=== PATIENT | male | born 1960 | race Caucasian/White ===

== ENCOUNTER → 2018-11-08 08:08 | Outpatient (CLI) | payer OTHER, SELFPAY ==
--- NOTE | 2018-11-08 | DI.MRI.S_ITS ---
PROCEDURE: MR LUMBAR SPINE WO CON INDICATIONS: LUMBAR SPINE PAIN TECHNIQUE: Noncontrast sagittal T1 spin echo and T2 fast echo, sagittal STIR, axial T1 and T2 fast spin echo through the lumbar spine. In cases with scoliosis, additional coronal T2 fast spin echo may be performed. COMPARISON: None. FINDINGS: Image quality: Excellent. Alignment and Curvature: There is minimal retrolisthesis seen at the L5-S1 level. Bone Marrow: Marrow is of normal overall signal. No acute vertebral body compression fractures. Scattered foci are seen, which are hyperintense on T1-weighted and T2-weighted imaging, which are most consistent with benign vertebral body hemangiomas. A remote Schmorl's node is incidentally noted at the superior endplate of T12. Spinal Cord: Conus medullaris terminates at the L1 level. Visualized cord demonstrates normal signal and size. Paraspinous Soft Tissues: No paravertebral masses. T12-L1: Normal appearance. L1-L2: Normal appearance. L2-L3: Normal appearance. L3-L4: The disc height and disk signal are well-preserved. Mild generalized disc bulge is seen. There is mild to moderate left-sided and mild right-sided neural foraminal narrowing seen. The central canal is widely patent. L4-L5: The disc height is well-preserved. Loss of disc signal is seen at this level. There is a faintly seen annular fissure posteriorly, as on series 2 image 9. Moderate disc bulge is seen, which is eccentric to the right. Moderate bilateral neural foraminal narrowing is seen, which is more prominent on the right side than on the left. Mild central canal narrowing is seen. L5-S1: Moderate disc bulge is seen, which is eccentric to the right. There is a right renal disc protrusion seen. There is mild left-sided and moderate right-sided neural foraminal narrowing seen. No significant central canal narrowing is seen. IMPRESSION: Lower lumbar spine degenerative changes are seen. Dictated by: Patrick Hutchinson M.D. on 11/08/2018 at 8:14 Approved by: Patrick Hutchinson M.D. on 11/08/2018 at 8:18
== END ==
PROVIDERS: PCP Registered Nurse Diabetes Educator; Visit Provider Physical Medicine & Rehabilitation Pain Medicine
DX: M54.5 Low back pain (principal); M47.816 Spondylosis without myelopathy or radiculopathy, lumbar region
CPT/HCPCS: 72148

== ENCOUNTER → 2020-03-10 08:19 | Outpatient (CLI) | payer OTHER, SELFPAY ==
[2020-03-10 09:00] LABS: Creatinine Urine Random 181.4 mg/dL
[2020-03-10 09:04] LABS: Microalbumi Creatinin Ratio Ur 6.6 ug/mg CR (<30); Microalbumin Urine Random 1.2 mg/dL (0-1.6)
[2020-03-10 09:44] LABS: Hemoglobin A1C% w Est Avg Glu 6.3 % (4.0-6.0)
[2020-03-10 09:50] LABS: BUN Creatinine Ratio 18.1 (6-22); Blood Urea Nitrogen 19 mg/dL (9-20); Calcium 9.3 mg/dL (8.4-10.2); Carbon Dioxide 24 mmol/L (22-32); Chloride 104 mmol/L (98-107); Estimated Glomerular Filt Rate > 60.0 mL/min (>60); Glucose 93 mg/dL (80-110); HEMOLYSIS 19 (0-50); Potassium 4.4 mmol/L (3.4-5.1); Sodium 138 mmol/L (137-145)
[2020-03-10 10:18] LABS: Prostate Specific Antigen Scrn 3.08 ng/mL (0.1-4.0)
[2020-03-10 10:23] LABS: Vitamin D 25 Hydroxy (D3) 33.9 ng/mL (30.0-100.0)
[2020-03-10 10:37] LABS: TSH w/ Reflex to FT4 4.95 uIU/mL (0.47-4.68)
[2020-03-10 11:01] LABS: Free T4, Direct Thyroxine 0.75 ng/dL (0.78-2.19)
== END ==
PROVIDERS: PCP Student in an Organized Health Care Education/Training Program; Referring Provider Student in an Organized Health Care Education/Training Program; Visit Provider Student in an Organized Health Care Education/Training Program
DX: Z12.5 Encounter for screening for malignant neoplasm of prostate (principal); I10 Essential (primary) hypertension; R73.03 Prediabetes; E55.9 Vitamin D deficiency, unspecified; E03.9 Hypothyroidism, unspecified
CPT/HCPCS: 36415; 80048; 82043; 82306; 82570; 83036; 84439; 84443; G0103

== ENCOUNTER → 2020-04-30 09:41 | Outpatient (CLI) | payer OTHER, SELFPAY ==
[2020-05-01 18:41] LABS: COVID19 Sendout Not Detected (Not Detect)
== END ==
PROVIDERS: PCP Student in an Organized Health Care Education/Training Program; Visit Provider Physician Assistant
DX: Z11.59 Encounter for screening for other viral diseases (principal)
CPT/HCPCS: 87635

== ENCOUNTER 2020-05-03 06:44 | Day surgery (SDC) | payer OTHER, SELFPAY ==
[2020-05-03 07:15] VITALS: BMI 30.4
[2020-05-03] MEDS: LACTATED RINGERS 1,000 ML 200 ML IV (07:30)
[2020-05-03 08:39] VITALS: BP 144/88; PULSE 56; RESP 12; TEMP 36.1; O2SAT 98; BMI 30.4
--- NOTE | 2020-05-03 10:14 | PM.HP.1 ---
History of Present Illness History of Present Illness Date Patient Seen: 05/03/20 Time Patient Seen: 10:14 Chief complaint: SD Narrative: The patient is a gentleman here for screening colonoscopy. His mother of colon cancer. His last exam was 5 years ago and was normal. Patient History Family & Social History Social History: household members spouse Tobacco & Substance use: Smoking Status Never smoker alcohol intake current alcohol intake frequency a few times a month Substance Use Type does not use Meds Home Medications and Allergies Home Medications Medication Instructions Recorded Confirmed Type esomeprazole magnesium 20 mg 20 mg PO DAILY PRN 03/09/20 05/03/20 History tablet,delayed release fexofenadine 180 mg tablet 180 mg PO DAILY 03/09/20 05/03/20 History pimecrolimus 1 % topical cream 1 applictn TOP BID PRN 03/09/20 05/03/20 History sildenafil 100 mg tablet 100 mg PO DAILY PRN 03/09/20 05/03/20 History atenolol 25 mg tablet 25 mg PO DAILY #90 tab 03/11/20 05/03/20 Rx metformin 500 mg tablet,extended 500 mg PO QPM #90 tab 03/11/20 05/03/20 Rx release 24 hr simvastatin 40 mg tablet 40 mg PO BEDTIME #90 tab 03/11/20 05/03/20 Rx Allergies Allergy/AdvReac Type Severity Reaction Status Date / Time amoxicillin Allergy Mild rash Verified 05/03/20 07:07 montelukast [From [facility]] Allergy Mild rash Verified 05/03/20 07:07 Review of Systems Review of Systems Narrative: No breathing issues heart problems chest pain he does have hypertension. Took his beta-charbel. No black or bloody bowel movements. No seizures or blackouts. Exam Vital Signs (past 8 hours): - 05/03/20 08:39 Temperature 96.9 F L Pulse Rate 56 L Respiratory Rate 12 Blood Pressure 144/88 H Pulse Oximetry 98 Oxygen Delivery Method Room Air Narrative Exam Narrative: Pleasant cooperative patient no apparent distress. Lungs are clear to auscultation. No rales or rhonchi. Heart regular rate and rhythm no murmur gallop. Abdomen is soft nontender without mass. No obvious hernias. Patient is alert and oriented x3. Assessment & Plan Assessment & Plan narrative: The patient for a screening colonoscopy. I have discussed the procedure with them. Risks of bleeding, perforation which would necessitate major operation, failure to find remove all lesions, the potential tattoo were all discussed. All questions were answered. They wished to proceed.
--- NOTE | 2020-05-03 10:15 | PM.PREOP ---
Pre-operative Note COVID-19 COVID-19 status: Negative Result date/Date tested (Pos, Neg/Pending): 04/30/20 Interval Note History & Physical reviewed/Exam performed by Physician: Yes Changes to H&P: No ASA Class (for procedural sedation): II
[2020-05-03] MEDS: fentaNYL 250 MCG/5 ML INJ IV (10:40)
[2020-05-03] MEDS: MIDAZOLAM 5 MG/5 ML VIAL IV (10:41)
--- NOTE | 2020-05-03 10:41 | PM.OP.ENDO ---
Operative Date/Time/Diagnoses Date of procedure: 05/03/20 Time of procedure: 10:41 Pre-op diagnosis: Screening exam. High-risk patient due to mother having colon cancer. Last exam 5 years ago. Post-op diagnosis: same (Normal colonoscopy) Procedure & Clinicians Study performed: Colonoscopy Same procedure as scheduled: Yes Indications: Screening Surgeon: Landon Henning Procedure Notes SCOAP/Timeout: Perform Procedure in detail: The patient was placed in the left lateral decubitus position and underwent IV sedation directed by the surgeon consisting of fentanyl and Versed. Digital exam was remarkable for mildly enlarged prostate. There were no masses. The scope was inserted and advanced through the rectum into the sigmoid, descending, transverse, and ascending colon. No lesions were seen. The cecum was reached identified by the ileocecal valve and the appendiceal opening. The scope was gradually brought out. No Polyps were found. The scope ultimately was retroflexed in the rectum. The appearance was normal. The scope was removed and the patient tolerated the procedure well. Prep was very good. Scope withdrawal time: Over 7 minutes Sedation minutes: 19 Findings: other findings (Normal exam) Specimen(s): none sent Complications: none Post-procedure Recommendations: Colonscopy in 5 years (Due to family history of colon cancer) Follow up: as needed Disposition: PACU
[2020-05-03 10:50] VITALS: BP 145/90; PULSE 88; RESP 16; TEMP 36.6; O2SAT 97
[2020-05-03 10:53] VITALS: BP 139/94; PULSE 64; RESP 12; O2SAT 96
[2020-05-03 11:03] VITALS: BP 133/85; PULSE 58; RESP 16; TEMP 36.4; O2SAT 94
[2020-05-03 12:16] VITALS: BP 137/80; PULSE 52; RESP 16; TEMP 36; O2SAT 97
--- NOTE | 2020-05-03 14:14 | SUR.PHASEII ---
Pt was resting comfortably in stretcher. Attempted to call multiple times however cell phone was not receiving calls. Around noon, retreved from waiting room and brought back for education and pt's d/c.
== END 2020-05-03 12:35 | disposition home or self-care (01) ==
PROVIDERS: Specialist; PCP Student in an Organized Health Care Education/Training Program; Visit Provider Surgery
PROC: 0DJD8ZZ Inspection of Lower Intestinal Tract, Via Natural or Artificial Opening Endoscopic (ICD-10-PCS; CPT 45378; principal; 2020-05-03 07:45)
DX: Z12.11 Encounter for screening for malignant neoplasm of colon (principal); Z80.0 Family history of malignant neoplasm of digestive organs; I10 Essential (primary) hypertension
CPT/HCPCS: 45378; 99152; J2250; J3010

== ENCOUNTER → 2020-08-04 15:23 | Outpatient (CLI) | payer OTHER, SELFPAY ==
[2020-08-04 15:55] LABS: Add Manual Diff / Slide Review NO; Basophils Absolute Auto 0 /uL (0-100); Basophils Percent Auto 0.8 % (0-2); Eosinophils Absolute Auto 100 /uL (0-450); Eosinophils Percent Auto 2.4 % (2-4); Hematocrit 46.2 % (41-53); Hemoglobin 15.5 g/dL (13.5-17.5); Lymphocytes Absolute Auto 2000 /uL (1100-4500); Lymphocytes Percent Auto 34.8 % (25-40); Mean Corpuscular HGB Conc 33.5 % (30-36); Mean Corpuscular Hemoglobin 30.9 PG (26-34); Mean Corpuscular Volume 92.2 fL (80-100); Monocytes Absolute Auto 700 /uL (0-900); Monocytes Percent Auto 12.6 % (3-14); Neutrophils Absolute Auto 2900 /uL (1500-7000); Neutrophils Percent Auto 49.4 % (50-75); Platelet Count 211 X10^3/uL (150-400); Red Cell Distribution Width 13.6 % (11.6-14.8); White Blood Cell Count 5.8 X10^3/uL (4.5-11.0)
[2020-08-04 16:02] LABS: Hemoglobin A1C% w Est Avg Glu 6.3 % (4.0-6.0)
[2020-08-04 16:06] LABS: BUN Creatinine Ratio 24.7 (6-22); Blood Urea Nitrogen 21 mg/dL (9-20); Calcium 9.3 mg/dL (8.4-10.2); Carbon Dioxide 27 mmol/L (22-32); Chloride 104 mmol/L (98-107); Estimated Glomerular Filt Rate > 60.0 mL/min (>60); Glucose 97 mg/dL (80-110); HEMOLYSIS < 15 (0-50); Potassium 4.4 mmol/L (3.4-5.1); Sodium 139 mmol/L (137-145)
[2020-08-04 16:37] LABS: Prostate Specific Antigen Scrn 3.45 ng/mL (0.1-4.0)
[2020-08-04 16:38] LABS: TSH w/ Reflex to FT4 6.45 uIU/mL (0.47-4.68)
[2020-08-04 16:56] LABS: Vitamin B12 Reflex MMA if <400 449 pg/mL (239-931)
[2020-08-04 17:05] LABS: Free T4, Direct Thyroxine 0.73 ng/dL (0.78-2.19)
== END ==
PROVIDERS: PCP Student in an Organized Health Care Education/Training Program; Referring Provider Student in an Organized Health Care Education/Training Program; Visit Provider Student in an Organized Health Care Education/Training Program
DX: Z12.5 Encounter for screening for malignant neoplasm of prostate (principal); R73.03 Prediabetes; G62.9 Polyneuropathy, unspecified; E03.9 Hypothyroidism, unspecified
CPT/HCPCS: 36415; 80048; 82607; 83036; 84439; 84443; 85025; G0103

== ENCOUNTER → 2020-09-15 09:04 | Outpatient (CLI) | payer OTHER, SELFPAY ==
[2020-09-15 10:58] LABS: TSH w/ Reflex to FT4 0.02 uIU/mL (0.47-4.68)
[2020-09-15 11:46] LABS: Free T4, Direct Thyroxine 1.54 ng/dL (0.78-2.19)
== END ==
PROVIDERS: PCP Student in an Organized Health Care Education/Training Program; Referring Provider Student in an Organized Health Care Education/Training Program; Visit Provider Student in an Organized Health Care Education/Training Program
DX: E03.9 Hypothyroidism, unspecified (principal)
CPT/HCPCS: 36415; 84439; 84443

== ENCOUNTER → 2020-10-27 08:21 | Outpatient (CLI) | payer OTHER, SELFPAY ==
[2020-10-27 11:20] LABS: Free T4, Direct Thyroxine 1.27 ng/dL (0.78-2.19)
== END ==
PROVIDERS: PCP Student in an Organized Health Care Education/Training Program; Referring Provider Student in an Organized Health Care Education/Training Program; Visit Provider Student in an Organized Health Care Education/Training Program
DX: E03.9 Hypothyroidism, unspecified (principal)
CPT/HCPCS: 36415; 84439; 84443

== ENCOUNTER → 2020-12-21 10:39 | Outpatient (CLI) | payer OTHER, SELFPAY ==
[2020-12-21 13:04] LABS: Free T4, Direct Thyroxine 0.86 ng/dL (0.78-2.19)
[2020-12-21 13:18] LABS: TSH w/ Reflex to FT4 3.55 uIU/mL (0.47-4.68)
== END ==
PROVIDERS: PCP Student in an Organized Health Care Education/Training Program; Referring Provider Student in an Organized Health Care Education/Training Program; Visit Provider Student in an Organized Health Care Education/Training Program
DX: E03.9 Hypothyroidism, unspecified (principal); G62.9 Polyneuropathy, unspecified
CPT/HCPCS: 36415; 84439; 84443

== ENCOUNTER → 2020-12-30 12:48 | Outpatient (CLI) | payer OTHER, SELFPAY ==
[2020-12-30] MEDS: COVID-19 VACC #1, MRNA(MOD) 100 MCG/0.5 ML VIAL IM (12:51)
== END ==
PROVIDERS: PCP Student in an Organized Health Care Education/Training Program; Visit Provider Internal Medicine
DX: Z23 Encounter for immunization (principal)
CPT/HCPCS: 0011A; 91301

== ENCOUNTER → 2021-01-27 12:41 | Outpatient (CLI) | payer OTHER, SELFPAY ==
[2021-01-27] MEDS: COVID-19 VACC #2, MRNA(MOD) 100 MCG/0.5 ML VIAL IM (12:46)
== END ==
PROVIDERS: PCP Student in an Organized Health Care Education/Training Program; Visit Provider Internal Medicine
DX: Z23 Encounter for immunization (principal)
CPT/HCPCS: 0012A; 91301

== ENCOUNTER → 2021-07-10 11:36 | Outpatient (CLI) | payer OTHER, SELFPAY ==
[2021-07-10 12:19] LABS: COVID19 -Nasal RAPID Negative (Negative)
== END ==
PROVIDERS: PCP Student in an Organized Health Care Education/Training Program; Visit Provider Nurse Practitioner Family
DX: Z20.822 Contact with and (suspected) exposure to COVID-19 (principal); R51.9 Headache, unspecified; R52 Pain, unspecified; R53.83 Other fatigue
CPT/HCPCS: 87635

== ENCOUNTER → 2021-08-02 15:36 | Outpatient (CLI) | payer OTHER, SELFPAY ==
[2021-08-02 17:18] LABS: Hemoglobin A1C% w Est Avg Glu 6.1 % (4.0-6.0)
[2021-08-02 17:33] LABS: BUN Creatinine Ratio 18.4 (6-22); Blood Urea Nitrogen 16 mg/dL (9-20); Calcium 9.3 mg/dL (8.4-10.2); Carbon Dioxide 24 mmol/L (22-32); Chloride 103 mmol/L (98-107); Cholesterol 179 mg/dL (140-199); Estimated Glomerular Filt Rate > 60.0 mL/min (>60); Glucose 100 mg/dL (80-110); HDL Cholesterol 57 mg/dL (40-60); HEMOLYSIS < 15 (0-50); LDL Cholesterol Calculated 90 mg/dL (<100); Potassium 4.3 mmol/L (3.4-5.1); Sodium 138 mmol/L (137-145); Triglycerides 159 mg/dL (35-150)
[2021-08-02 17:50] LABS: Vitamin D 25 Hydroxy (D3) 32.6 ng/mL (30.0-100.0)
[2021-08-02 17:56] LABS: Microalbumi Creatinin Ratio Ur 10.7 ug/mg CR (<30); Microalbumin Urine Random 1.3 mg/dL (0-1.6)
[2021-08-02 18:02] LABS: Prostate Specific Antigen Scrn 4.17 ng/mL (0.1-4.0)
[2021-08-02 18:04] LABS: TSH w/ Reflex to FT4 4.07 uIU/mL (0.47-4.68)
[2021-08-02 18:21] LABS: Vitamin B12 923 pg/mL (239-931)
== END ==
PROVIDERS: PCP Student in an Organized Health Care Education/Training Program; Referring Provider Student in an Organized Health Care Education/Training Program; Visit Provider Student in an Organized Health Care Education/Training Program
DX: E11.69 Type 2 diabetes mellitus with other specified complication (principal); E78.5 Hyperlipidemia, unspecified; I10 Essential (primary) hypertension; Z12.5 Encounter for screening for malignant neoplasm of prostate; G62.9 Polyneuropathy, unspecified; E03.9 Hypothyroidism, unspecified; E55.9 Vitamin D deficiency, unspecified
CPT/HCPCS: 36415; 80048; 80061; 82043; 82306; 82570; 82607; 83036; 84443; G0103

== ENCOUNTER → 2021-09-16 09:53 | Outpatient (CLI) | payer OTHER, SELFPAY ==
[2021-09-16 12:08] LABS: Prostate Specific Antigen 3.75 ng/mL (0.10-4.00)
== END ==
PROVIDERS: PCP Student in an Organized Health Care Education/Training Program; Referring Provider Student in an Organized Health Care Education/Training Program; Visit Provider Student in an Organized Health Care Education/Training Program
DX: R97.20 Elevated prostate specific antigen [PSA] (principal)
CPT/HCPCS: 36415; 84153

== ENCOUNTER → 2022-03-20 09:29 | Outpatient (CLI) | payer OTHER, SELFPAY ==
[2022-03-20 10:52] LABS: Hemoglobin A1C% w Est Avg Glu 6.2 % (4.0-6.0)
== END ==
PROVIDERS: PCP Student in an Organized Health Care Education/Training Program; Referring Provider Student in an Organized Health Care Education/Training Program; Visit Provider Student in an Organized Health Care Education/Training Program
DX: E11.9 Type 2 diabetes mellitus without complications (principal); I10 Essential (primary) hypertension
CPT/HCPCS: 36415; 83036

== ENCOUNTER → 2022-04-18 09:11 | Outpatient (CLI) | payer OTHER, SELFPAY ==
[2022-04-18 10:18] LABS: COVID19 -Nasal RAPID POSITIVE (Negative)
== END ==
PROVIDERS: PCP Student in an Organized Health Care Education/Training Program; Visit Provider Physician Assistant
DX: U07.1 COVID-19 (principal)
CPT/HCPCS: 87635

== ENCOUNTER → 2022-07-19 16:13 | Outpatient (CLI) | payer OTHER, SELFPAY ==
--- NOTE | 2022-07-19 16:14 | DI.RAD.S_ITS ---
PROCEDURE: XR SACROILIAC JOINT MIN 3V INDICATIONS: Left SI joint pain TECHNIQUE: 3 views of the sacroiliac joints were acquired. COMPARISON: MR, MR LUMBAR SPINE WO CON, 11/08/2018, 8:25. FINDINGS: Bones: No bony erosions or ankylosis. No suspicious bony lesions. No fractures. Mild joint narrowing with periarticular osteophyte formation of the SI joints. Soft tissues: Overlying bowel gas pattern is normal. No suspicious soft tissue densities. IMPRESSION: Mild symmetric SI joint degeneration. If there is high concern for further derangement, consider MRI evaluation. Dictated by: Milton Silva [facility] Interpreted: Riki Armstrong MD on 07/19/2022 at 17:11 Transcribed by: DYAN on 07/19/2022 at 17:11 Approved by: Riki Armstrong M.D. on 07/20/2022 at 9:39
== END ==
PROVIDERS: PCP Student in an Organized Health Care Education/Training Program; Referring Provider Student in an Organized Health Care Education/Training Program; Visit Provider Student in an Organized Health Care Education/Training Program
DX: M53.3 Sacrococcygeal disorders, not elsewhere classified (principal)
CPT/HCPCS: 72202

== ENCOUNTER → 2022-07-28 15:21 | Outpatient (CLI) | payer OTHER, SELFPAY ==
--- NOTE | 2022-07-28 15:22 | DI.MRI.S_ITS ---
PROCEDURE: MR LUMBAR SPINE WO CON INDICATIONS: Low back injury; h/o DJD TECHNIQUE: Noncontrast sagittal T1 spin echo and T2 fast echo, sagittal STIR, and T2 fast spin echo through the lumbar spine. In cases with scoliosis, additional coronal T2 fast spin echo may be performed. COMPARISON: [facility], MR, MR LUMBAR SPINE WO CON, 11/08/2018, 8:25. FINDINGS: Image quality: Excellent. Alignment and Curvature: There is 6 mm retrolisthesis L5 on S1, 2 mm retrolisthesis of L4 on L5. Bone Marrow: Marrow is of normal overall signal. There are multifocal areas of hypointense T1 and hyperintense T2/FLAIR signal within the lumbar spine with the largest foci identified at L3-L4 and L5. These are new compared to prior exam. No acute vertebral body compression fractures. Spinal Cord: Conus medullaris terminates at the L1 level. Visualized cord demonstrates normal signal and size. Paraspinous Soft Tissues: No paravertebral masses. Discs: Moderate desiccation is present L5-S1, minimal to mild throughout the remainder of the lumbar spine. L1-L2: No disc bulge, spinal stenosis or foraminal narrowing. No interval change. L2-L3: Minimal disc bulge without spinal stenosis or foraminal narrowing. No interval change. L3-L4: Minimal disc bulge without spinal stenosis. There is [id number] bilateral foraminal narrowing, minimally progressive on the right. Facet and ligamentum flavum hypertrophy as well as epidural lipomatosis are present. L4-L5: Mild disc bulge with trace spinal stenosis. Moderate bilateral foraminal narrowing with facet and ligamentum flavum hypertrophy. L5-S1: Mild disc bulge without spinal stenosis. Mild left and moderate right foraminal narrowing with facet and ligamentum flavum hypertrophy. IMPRESSION: Multilevel degenerative changes with areas of interval progression as above. Foraminal narrowing remains most notable at L4-5 secondary to facet and ligamentum flavum arthropathy. Interval development hypo/hyperintense marrow foci within the lumbar spine as above. These are concerning for metastatic disease and recommend correlation to any known primary. Further follow-up lumbar spine with contrast is recommended for further evaluation. Dictated by: Deanna Cornell M.D. on 07/28/2022 at 17:09 Approved by: Deanna Cornell M.D. on 07/28/2022 at 17:14
== END ==
PROVIDERS: PCP Student in an Organized Health Care Education/Training Program; Referring Provider Student in an Organized Health Care Education/Training Program; Visit Provider Student in an Organized Health Care Education/Training Program
DX: M53.3 Sacrococcygeal disorders, not elsewhere classified (principal); M47.816 Spondylosis without myelopathy or radiculopathy, lumbar region; G63 Polyneuropathy in diseases classified elsewhere; M48.061 Spinal stenosis, lumbar region without neurogenic claudication; M89.9 Disorder of bone, unspecified
CPT/HCPCS: 72148

== ENCOUNTER → 2022-08-02 11:20 | Outpatient (CLI) | payer OTHER, SELFPAY ==
[2022-08-02 12:04] LABS: Add Manual Diff / Slide Review NO; Basophils Absolute Auto 0 /uL (0-100); Basophils Percent Auto 0.9 % (0-2); Eosinophils Absolute Auto 100 /uL (0-450); Eosinophils Percent Auto 1.9 % (2-4); Hematocrit 44.8 % (41-53); Hemoglobin 15.2 g/dL (13.5-17.5); Lymphocytes Absolute Auto 1700 /uL (1100-4500); Lymphocytes Percent Auto 39.5 % (25-40); Mean Corpuscular Volume 91.2 fL (80-100); Monocytes Absolute Auto 600 /uL (0-900); Monocytes Percent Auto 13.7 % (3-14); Neutrophils Absolute Auto 1900 /uL (1500-7000); Platelet Count 230 X10^3/uL (150-400); Red Blood Cell Count 4.92 X10^6/uL (4.5-5.9); Red Cell Distribution Width 14.6 % (11.6-14.8); White Blood Cell Count 4.3 X10^3/uL (4.5-11.0)
[2022-08-02 12:22] LABS: Erythrocyte Sedimentation Rate 16 MM/HR (0-15)
[2022-08-02 12:44] LABS: Alanine Aminotransferase 53 IU/L (<50); Albumin 4.2 g/dL (3.5-5.0); Albumin Globulin Ratio 0.9 (1.0-2.8); Alkaline Phosphatase 58 U/L (38-126); Aspartate Aminotransferase 40 IU/L (17-59); Bilirubin Total 0.4 mg/dL (0.2-1.3); Blood Urea Nitrogen 17 mg/dL (9-20); C-Reactive Protein Quant < 0.5 mg/dL (<1.0); Carbon Dioxide 28 mmol/L (22-32); Chloride 102 mmol/L (98-107); Estimated Glomerular Filt Rate > 60 mL/min (>60); Globulin 4.7 g/dL (1.7-4.1); Glucose 93 mg/dL (80-110); HEMOLYSIS < 15 (0-50); Potassium 4.7 mmol/L (3.4-5.1); Sodium 139 mmol/L (137-145); Total Protein 8.9 g/dL (6.3-8.2)
[2022-08-02 13:10] LABS: Prostate Specific Antigen 4.05 ng/mL (0.10-4.00)
== END ==
PROVIDERS: PCP Student in an Organized Health Care Education/Training Program; Referring Provider Student in an Organized Health Care Education/Training Program; Visit Provider Student in an Organized Health Care Education/Training Program
DX: M89.9 Disorder of bone, unspecified (principal); N14.11 Contrast-induced nephropathy; T50.8X5A Adverse effect of diagnostic agents, initial encounter; M47.816 Spondylosis without myelopathy or radiculopathy, lumbar region
CPT/HCPCS: 36415; 80053; 84153; 85025; 85651; 86140

== ENCOUNTER → 2022-08-04 11:39 | Outpatient (CLI) | payer OTHER, SELFPAY ==
--- NOTE | 2022-08-04 11:39 | DI.MRI.S_ITS ---
PROCEDURE: MR LUMBAR SPINE W CON INDICATIONS: Re-evaluate spinal lesions on previous MRI TECHNIQUE: Noncontrast sagittal T1 spin echo and T2 fast spin echo, sagittal STIR, axial T1 and T2 fast spin echo through the lumbar spine. In cases with scoliosis, additional coronal T2 fast spin echo may be performed. After the administration of contrast, sagittal and axial T1 spin echo with fat saturation through the lumbar spine. COMPARISON: [facility], MR, MR LUMBAR SPINE WO CON, 07/28/2022, 15:44. FINDINGS: This is a limited contrast only MRI. Non-contrast MRI findings are separately dictated from 07/28/2022. On contrast enhanced images, numerous foci of bone metastases are seen, mostly involving the vertebral bodies, but also with small lesions involving the posterior elements (for example the left T11 pedicle and superior facet), sacrum, partially visualized pelvic bones. Enhancement around the right-sided L4-L5 facet may be due to inflammation or an underlying lesion. The largest lesion is at T11 measuring 12 x 13 mm (Bilski 1A). IMPRESSION: Enhancing osseous lesions as described above suspicious for metastatic disease. The largest lesion is at T11, Bilsky 1A Dictated by: Riki Armstrong M.D. on 08/04/2022 at 12:37 Approved by: Riki Armstrong M.D. on 08/04/2022 at 12:44
== END ==
PROVIDERS: PCP Student in an Organized Health Care Education/Training Program; Referring Provider Student in an Organized Health Care Education/Training Program; Visit Provider Student in an Organized Health Care Education/Training Program
DX: M47.816 Spondylosis without myelopathy or radiculopathy, lumbar region (principal); M89.9 Disorder of bone, unspecified
CPT/HCPCS: 72149

== ENCOUNTER → 2022-08-10 08:46 | Outpatient (CLI) | payer OTHER, SELFPAY ==
--- NOTE | 2022-08-10 08:47 | DI.CT.S_ITS ---
PROCEDURE: CT SOFT TISSUE NECK W CON INDICATIONS: Metastatic disease TECHNIQUE: Helical axial CT of the neck was obtained after intravenous contrast injection and reformatted in multiple planes. Radiation dose reduction was achieved utilizing automated exposure control and/or weight-based dosing. COMPARISON: [facility], MR, MR LUMBAR SPINE WO CON, 07/28/2022, 15:44. Merged With [facility], MR, MR LUMBAR SPINE W CON, 08/04/2022, 11:45. Merged With [facility], CT, SOFT TISSUE NECK W CONTRAST, 07/28/2014, 10:48. FINDINGS: Skull Base: The visualized intracranial contents, skull, and orbits are unremarkable. Small retention cysts noted in the maxillary sinuses Pharynx and Larynx: The nasopharyngeal airway is patent and midline. Parapharyngeal soft tissues including palatine tonsils and base of the tongue are normal. Retropharyngeal space unremarkable. Normal appearance of the false and true vocal cords. Muscles and Fascial Planes: Fascial planes are well maintained. No abscess or mass lesion. Lymph Nodes: No evidence of adenopathy. Vasculature: Unremarkable. Submandibular and Parotid Glands: Normal in size and attenuation. Thyroid: Unremarkable. No enlarged or calcified nodules. Bones: No acute fracture. No osteolytic or blastic lesion is evident. Normal bone mineralization. Multilevel degenerative disc disease and arthropathy in the lower lumbar spine Lung Apices: The visualized lung apices are clear. IMPRESSION: 1. No CT evidence of metastatic disease in the neck. No lytic or blastic lesions. 2. Mild maxillary and ethmoid mucosal sinus disease Approved by: Natan Church M.D. on 08/10/2022 at 13:17
--- NOTE | 2022-08-10 08:47 | DI.CT.S_ITS ---
PROCEDURE: CT CHEST ABD PEL W CON INDICATIONS: Incidental lumbar mets. What is primary? TECHNIQUE: After the administration of oral and intravenous contrast, axial sections acquired from the supraclavicular neck to the pubic symphysis. Coronal and sagittal reformats were performed. For radiation dose reduction, the following was used: automated exposure control, adjustment of mA and/or kV according to patient size. COMPARISON: [facility], MR, MR LUMBAR SPINE W CON, 08/04/2022, 11:45. FINDINGS: Image quality: Excellent. CHEST: Lower Neck: No enlarged lymph nodes. Thyroid: Within normal limits. Axillae: No enlarged lymph nodes. Chest Wall: Unremarkable. Lungs and Airways: 3 mm right middle lobe pulmonary nodule, image 170/3. 2 mm left upper lobe pulmonary nodule, image 54/3. No consolidation or suspicious nodules. Pleura: No pneumothorax or pleural effusions. Heart: Heart size is normal. No pericardial effusion. Thoracic Vessels: The aorta and pulmonary arteries demonstrate normal size. Mediastinum and Crista: No enlarged lymph nodes. Esophagus: No wall thickening. No hiatal hernia. ABDOMEN: Liver: Mild diffuse hepatic steatosis. No focal liver masses. Gallbladder: Unremarkable. Biliary ducts: Unremarkable. Pancreas: Unremarkable. Spleen: Unremarkable. Adrenal Glands: Unremarkable. Kidneys and Ureters: Unremarkable. Stomach and Bowel: Stomach, small bowel loops, and colon are unremarkable. Peritoneum: No abnormal intraperitoneal fluid. No free air. Ventral Wall: No hernia. Abdominal Nodes: No retroperitoneal or mesenteric adenopathy by size criteria. Vessels: Aorta and inferior vena cava are normal in size. PELVIS: Pelvic Organs: Prostate is at least moderately to severely enlarged. Bladder: Unremarkable. Pelvic Nodes: No enlarged lymph nodes. Miscellaneous: No inguinal hernias are seen. Bones: Lytic bony metastatic lesions involve the right posterior T11 vertebral body as well as the right superior L1 vertebral body. More extensive bony metastatic disease is clearly visible on the previous MRI. IMPRESSION: 1. Lytic bony metastatic disease. 2. Bilateral small pulmonary nodules, of uncertain significance. 3. No other evidence of metastatic disease in the chest, abdomen, and pelvis. 4.Prostate is moderately to severely enlarged. Dictated by: Uriah Navarrete M.D. on 08/10/2022 at 18:45 Approved by: Uriah Navarrete M.D. on 08/10/2022 at 20:16
== END ==
PROVIDERS: PCP Student in an Organized Health Care Education/Training Program; Referring Provider Student in an Organized Health Care Education/Training Program; Visit Provider Student in an Organized Health Care Education/Training Program
DX: C79.51 Secondary malignant neoplasm of bone (principal); C80.1 Malignant (primary) neoplasm, unspecified; J32.8 Other chronic sinusitis; R91.8 Other nonspecific abnormal finding of lung field; K76.0 Fatty (change of) liver, not elsewhere classified; N40.0 Benign prostatic hyperplasia without lower urinary tract symptoms
CPT/HCPCS: 70491; 71260; 74177; Q9967

== ENCOUNTER → 2022-08-31 08:29 | Outpatient (CLI) | payer OTHER, SELFPAY ==
--- NOTE | 2022-08-31 09:00 | DI.MRI.S_ITS ---
PROCEDURE: MR PELVIS WO/W CON INDICATIONS: Elevated PSA metastatic bone lesions TECHNIQUE: Coronal HASTE, axial T1 FSE with fat saturation, 3-plane nonbreath-hold T2 FSE. After the administration of contrast, dynamic axial, delayed axial and coronal VIBE or 2-D FLASH with fat saturation through the pelvis. Optional diffusion weighted imaging and ADC may be performed. COMPARISON: [place], [place], [place] PET CT FUSION WHOLE BODY, 08/23/2022, 9:46. FINDINGS: Image quality: Suboptimal due to susceptibility artifact. The base of the prostate gland is not well evaluated on DWI/ADC images. Prostate: Gland size is 6.4 x 4.2 x 5.6 cm; ellipsoid gland volume is 78 mL. Lesion #1: Size: 0.6 x 0.4 cm Location: Left posterior medial peripheral zone, mid gland-apex (for example series 24, image 16) T2 signal: Circumscribed hypointense DWI/ADC signal: Hypointense on ADC images corresponding DWI hyperintensity. DCE: Positive JOSE RAMON: No definite extracapsular extension identified Seminal vesicle invasion: Absent PI-RADS: T2 signal - 4; ADC - 3; DCE - positive; Overall score: PI-RADS 4. Genitourinary system: Bladder wall thickness is normal. Distal ureters are non distended. Bowel and peritoneum: No pathologic free pelvic fluid. Inferior colon and small bowel loops are normal in caliber. Nodes and vessels: No pelvic or inguinal adenopathy by size criteria. Iliac vessels are normal in caliber. Bones: Multiple bony lesions are present suspicious for metastatic disease or other pathology such as multiple myeloma described in the report for the prior PET-CT. For example, a 2.0 cm lesion at the right pubic bone adjacent to the pubic symphysis (series 21, image 126) and a 1.8 cm lesion at the proximal left femur (21/158). IMPRESSION: 1. A 0.6 cm lesion at the left peripheral zone, mid gland-apex, is consistent with PI-RADS category 4. 2. No suspicious lymph nodes identified within the imaged pelvis. 3. Innumerable bony lesions present, which could represent metastatic disease or other pathology, such as myeloma. Nuclear medicine bone scan might be helpful for further evaluation. Dictated by: Sergo Hatfield M.D. on 08/31/2022 at 9:32 Approved by: Sergo Hatfield M.D. on 08/31/2022 at 10:31
== END ==
PROVIDERS: PCP Student in an Organized Health Care Education/Training Program; Referring Provider Urology; Visit Provider Urology
DX: C79.51 Secondary malignant neoplasm of bone (principal); C80.1 Malignant (primary) neoplasm, unspecified; R97.20 Elevated prostate specific antigen [PSA]
CPT/HCPCS: 72197

== ENCOUNTER → 2022-09-12 08:39 | Outpatient (CLI) | payer OTHER, SELFPAY ==
[2022-09-12 09:33] LABS: Hemoglobin A1C% w Est Avg Glu 6.1 % (4.0-6.0)
[2022-09-12 10:17] LABS: TSH w/ Reflex to FT4 2.61 uIU/mL (0.47-4.68)
== END ==
PROVIDERS: PCP Student in an Organized Health Care Education/Training Program; Referring Provider Student in an Organized Health Care Education/Training Program; Visit Provider Student in an Organized Health Care Education/Training Program
DX: E03.9 Hypothyroidism, unspecified (principal); E11.9 Type 2 diabetes mellitus without complications
CPT/HCPCS: 36415; 83036; 84443

== ENCOUNTER 2022-09-26 06:42 | Day surgery (SDC) | payer OTHER, SELFPAY ==
[2022-09-21 08:20] VITALS: BMI 31.1
[2022-09-26] VITALS (9 sets, daily range): BP systolic 118–137; BP diastolic 74–84; PULSE 56–86; RESP 12–18; TEMP 36.2–36.6; O2SAT 94–98; BMI 31.1
[2022-09-26 07:18] LABS: COVID19 -Nasal RAPID Negative (Negative)
[2022-09-26] MEDS: LACTATED RINGERS 1,000 ML 42 ML IV (07:44)
--- NOTE | 2022-09-26 08:12 | P.HP_ITS ---
History of Present Illness History of Present Illness Chief complaint: Port-A-Cath Insertion Narrative: Mr. Christy presents today for port-a-cath placement. He requires treatment for prostate cancer. Treatments scheduled to start Oct 06. Patient History Medical History (Updated 09/21/22 @ 08:35 by Flora Fernández RN) Allergies Chronic back pain COVID-19 virus infection (04/18/22) Elevated PSA, less than 10 ng/ml Eosinophilic esophagitis (~2016) Lower urinary tract symptoms Skin cancer Sleep apnea (~2007) Subclinical hypothyroidism (~2016) Surgical History History of colonoscopy Family & Social History Family History Father History of heart disease Stroke Mother Cancer Sister History of heart disease Diabetes mellitus COPD (chronic obstructive pulmonary disease) History of coronary artery disease Esophageal cancer Sister Diabetes mellitus Hyperlipidemia Hypothyroidism Hypertension Aunt Breast cancer Aunt Thyroid cancer Family/Other Lung cancer Social History: household members spouse Tobacco & Substance use: Smoking Status Never smoker alcohol intake current alcohol intake frequency holiday/special occasion Substance Use Type does not use Meds Home Medications and Allergies Home Medications Medication Instructions Recorded Confirmed Type Viagra 100 mg tablet (sildenafil) 100 mg PO DAILY PRN sexual 08/31/21 09/26/22 Rx activity #10 tabs omeprazole 20 mg capsule,delayed 20 mg PO DAILY PRN acid reflux #90 12/14/21 09/26/22 Rx release caps pimecrolimus 1 % topical cream 1 applic topical BID #30 grams 01/16/22 09/26/22 Rx atenolol 25 mg tablet 25 mg PO DAILY #90 tabs 07/12/22 09/26/22 Rx levothyroxine 50 mcg tablet 50 mcg PO DAILY #90 tabs 07/12/22 09/26/22 Rx simvastatin 40 mg tablet 40 mg PO BEDTIME #90 tabs 07/12/22 09/26/22 Rx metformin 500 mg tablet,extended 500 mg PO QPM #90 tabs 08/01/22 09/26/22 Rx release 24 hr cholecalciferol (vitamin D3) 25 25 mcg PO DAILY 08/17/22 09/26/22 History mcg (1,000 unit) capsule (Vitamin D3) cyanocobalamin (vitamin B-12) 1,000 mcg PO DAILY 08/17/22 09/26/22 History 1,000 mcg tablet (Vitamin B-12) fexofenadine 180 mg tablet 180 mg PO PRN PRN Allergy Symptoms 08/17/22 09/26/22 History tramadol 100 mg tablet 100 mg PO BID PRN pain #60 tabs 09/04/22 09/26/22 Rx levofloxacin 500 mg tablet 500 mg PO Q24H multiple myeloma 09/07/22 09/26/22 Rx #90 tabs sulfamethoxazole 800 1 tab PO DAILY multiple myeloma 09/07/22 09/26/22 Rx mg-trimethoprim 160 mg tablet #30 tabs (Bactrim DS) valacyclovir 500 mg tablet 500 mg PO BID multiple myeloma #60 09/07/22 09/26/22 Rx tabs dexamethasone 20 mg tablet 40 mg PO WEEKLY #8 tabs 09/18/22 09/26/22 Rx lenalidomide 25 mg capsule 25 mg PO DIRECTED #21 caps 09/18/22 09/26/22 Rx (Revlimid) lorazepam 0.5 mg tablet 0.5 mg PO TID PRN chemo nausea #30 09/21/22 09/26/22 Rx tabs prochlorperazine maleate 10 mg 10 mg PO Q6H PRN nausea 09/21/22 09/26/22 Rx tablet chemotherapy #30 tabs aspirin 81 mg tablet,delayed 81 mg PO DAILY 09/26/22 09/26/22 History release Allergies Allergy/AdvReac Type Severity Reaction Status Date / Time amoxicillin Allergy Mild rash Verified 09/26/22 07:17 [facility] Allergy Mild rash Verified 09/26/22 07:17 Exam Vital Signs (past 8 hours): - 09/26/22 07:26 Temperature 97.6 F Pulse Rate 57 L Respiratory Rate 18 Blood Pressure 127/82 Pulse Oximetry 98 Oxygen Delivery Method Room Air Oxygen Delivery Method Room Air Const General: cooperative, healthy appearing and comfortable [facility] Head: normal to inspection Resp Effort & Inspection: normal respiratory effort and able to speak in complete sentences Cardio Pulses: radial pulses present GI Palpation: soft and No hernia Objective Labs Labs: Laboratory Results - last 24 hr 09/26/22 06:55 SARS-CoV-2 (PCR) Negative Assessment & Plan Assessment and plan (1) Cancer, metastatic to bone: Status: Acute Assessment & Plan narrative: I discussed risks benefits and alternatives to port a cath. He understands risks including catheter malfunction, infection, misplacment, need to remove catheter or replace and pneumothorax. He would like to proceed. Time Spent With Patient Critical Care time: I spent a total of [] minutes of critical care time on this patient's care today; this time is exclusive of procedural time.
[2022-09-26] MEDS: CEFAZOLIN 2 GM/100 ML PREMIX 100 ML IV (08:25)
--- NOTE | 2022-09-26 08:40 | SUR.OPER ---
Supine on padded OR bed, head on pillow, arms padded and tucked at sides, legs uncrossed, safety belt at thigh, tape over blanket over torso
[2022-09-26] MEDS: HEPARIN 5,000 UNIT, SODIUM CHLORIDE 0.9% 50 ML IV (08:47)
[2022-09-26] MEDS: BUPIVACAINE 0.5% W/ EPI (PF) 30 ML VIAL INJ (08:49)
--- NOTE | 2022-09-26 09:30 | DI.RAD.S_ITS ---
PROCEDURE: XR CHEST 1V INDICATIONS: PORT A CATH TECHNIQUE: One view of the chest was acquired. COMPARISON: None. FINDINGS: Surgical changes and devices: Left chest wall Port-A-Cath tip is in SVC. Lungs and pleura: Lungs are clear. No pleural effusions or pneumothorax. Mediastinum: Mediastinal contours appear normal. Heart size is normal. Bones and chest wall: No suspicious bony lesions. Overlying soft tissues appear unremarkable. IMPRESSION: Left chest wall Port-A-Cath tip is in SVC. No focal infiltrate, pleural effusion or pneumothorax. Dictated by: Michele Escobedo M.D. on 09/26/2022 at 9:38 Approved by: Michele Escobedo M.D. on 09/26/2022 at 9:39
--- NOTE | 2022-09-26 14:28 | P.OP_ITS ---
Procedure & Clinicians Procedure: Port-A-Cath insertion. ultrasound guidance used. Same procedure as scheduled: Yes Indications: patient has metastatic cancer requires port for treatment. Surgeon: Manda Lopez Click Yes if Unassisted: Yes Anesthesia Type: MAC +/- Operative Notes Findings: Left subclavian vein cannulated sucessfully. Procedure in detail: Patient was taken to the operating room and placed supine on the operating room table. A shoulder roll was placed. bilateral SCDs were placed perioperative antibiotics were administered a time-out was performed. An LMA was used for anesthesia. the left neck and chest were prepped in the usual sterile fashion. An ultrasound was prepped into the field. Subclavian vein was seen using the ultrasound and entered using the introducer needle. A wire was placed through the needle and a x-ray was taken to verify the correct location. Next the dilator was placed over the wire and the catheter was inserted. A tunnel was created between the skin wound and pocket that had been made for the port b [place]. A 15 blade scalpel was used to incise the skin and both electrocautery and local anesthesia were used to create this pocket. The catheter was then cut to the correct length and attached to the button. Unfortunately the catheter was placed with the numbers backwards, so a 45 cm kalyani will be at the tip and at the level of the skin was 25 cm. Because of this, the position of the catheter was double checked with an additional inoperative x-ray to make sure that it is seated in the exact correct location. It looked good. The catheter was drawn back with blood returning and flushed forward well with heparinized saline. Next the button was secured using 2x0 Prolenes on either side. Subcutaneous tissue was closed with 3-0 Vicryl sutures and the skin was closed over top with a running Monocryl suture. The wound was dressed with Steri-Strips and gauze and Tegaderm. Patient tolerated the procedure well and went in good condition to the postoperative care unit EBL was minimal there were no complications. The postoperative chest x-ray revealed good position of the catheter and no pneumothorax. Patient may be discharged home with as needed follow-up. Complications: none
== END 2022-09-26 10:37 | disposition home or self-care (01) ==
PROVIDERS: PCP Student in an Organized Health Care Education/Training Program; Referring Provider Surgery; Visit Provider Surgery
PROC: (CPT 36561; principal; 2022-09-26 07:45)
DX: C61 Malignant neoplasm of prostate (principal); Z20.822 Contact with and (suspected) exposure to COVID-19
CPT/HCPCS: 36561; 71045; 76000; 82962; 87635; C9803; J0690; J1100; J1644; J2250; J2405; J2704; J3010

== ENCOUNTER 2023-02-20 09:12 | Day surgery (SDC) | payer OTHER, SELFPAY ==
[2023-02-20 09:39] VITALS: BMI 26.6
[2023-02-20 09:55] VITALS: BP 132/72; PULSE 57; RESP 17; TEMP 36.4; O2SAT 100
--- NOTE | 2023-02-20 10:35 | PM.PREOP ---
Pre-operative Note Interval Note History & Physical reviewed/Exam performed by Physician: Yes Changes to H&P: No
[2023-02-20 11:04] VITALS: BP 83/46; PULSE 56; RESP 12; TEMP 36.1; O2SAT 96
--- NOTE | 2023-02-20 11:04 | PM.OP.COLON ---
Operative Date/Time/Diagnoses Date of procedure: 02/20/23 Time of procedure: 11:04 Pre-op diagnosis: Rectal bleeding Post-op diagnosis: other (Diverticulosis) Procedure & Clinicians Study performed: Diagnostic colonoscopy Same procedure as scheduled: Yes Indications: 62-year-old man with prostate cancer recent rectal bleeding on blood thinners here for diagnostic colonoscopy. Surgeon: Kevin Ocampo Procedure Notes Procedure in detail: The history and physical was performed/updated and the patient is ASA class is 2. The procedure was discussed in detail with the patient. Potential risks complications including infection, bleeding, missed diagnosis, perforation, need for surgery, and were explained. Their questions were answered and informed consent was obtained. Patient was brought to the procedure room and placed standard monitoring equipment. The patient's vital signs were monitored continuously throughout the entire procedure. Prior to starting time-out was performed. The patient was placed in the left lateral recumbent position. Procedural sedation was administered by anesthesia. Examination began with a thorough inspection of the perianal area there was no evidence of fissures, fistulae, external hemorrhoids or cutaneous malignancy. The colonoscopy scope was then placed into the anal canal and was advanced to the cecum, which was identified by the ileocecal valve, the appendiceal orifice and the confluence of the taenia. The scope was then slowly withdrawn examining colon thoroughly in all directions, irrigating it of any residual stool. Colon is free from masses and polyps. Mild/moderate sigmoid diverticulosis. Grade 1 internal hemorrhoids on retroflexion. The patient tolerated the procedure well. They will be discharged once criteria are met. The prep was of good/excellent quality. The withdrawl time was 7 minutes. Specimen(s): none sent Impression: Normal colonoscopy Post-procedure Recommendations: Colonoscopy in 10 years and High fiber diet Disposition: same day surgery
[2023-02-20 11:10] VITALS: BP 82/46; PULSE 56; RESP 10; O2SAT 97
[2023-02-20 11:15] VITALS: BP 103/76; PULSE 58; RESP 16; O2SAT 97
[2023-02-20 11:23] VITALS: BP 103/76; PULSE 59; RESP 16; O2SAT 97
[2023-02-20 12:01] VITALS: BP 115/69; PULSE 61; RESP 16; TEMP 36.4; O2SAT 99
== END 2023-02-20 12:03 | disposition home or self-care (01) ==
PROVIDERS: PCP Student in an Organized Health Care Education/Training Program; Referring Provider Surgery; Visit Provider Surgery
PROC: 0DJD8ZZ Inspection of Lower Intestinal Tract, Via Natural or Artificial Opening Endoscopic (ICD-10-PCS; CPT 45378; principal; 2023-02-20 10:30)
DX: K62.5 Hemorrhage of anus and rectum (principal); C90.01 Multiple myeloma in remission; Z85.46 Personal history of malignant neoplasm of prostate; K57.30 Diverticulosis of large intestine without perforation or abscess without bleeding; K64.0 First degree hemorrhoids
CPT/HCPCS: 45378; J1642; J2704

== ENCOUNTER 2023-03-12 11:27 | Day surgery (SDC) | payer OTHER, SELFPAY ==
[2023-03-12] VITALS (8 sets, daily range): BP systolic 101–129; BP diastolic 32–76; PULSE 53–70; RESP 14–21; TEMP 36.1–36.3; O2SAT 95–100; BMI 26.6
[2023-03-12] MEDS: LACTATED RINGERS 1,000 ML 100 ML IV (12:12)
== END 2023-03-12 13:45 | disposition home or self-care (01) ==
PROVIDERS: PCP Pediatrics; Referring Provider Internal Medicine Hematology & Oncology; Visit Provider Internal Medicine Hematology & Oncology
DX: C61 Malignant neoplasm of prostate (principal); Z51.11 Encounter for antineoplastic chemotherapy; C79.51 Secondary malignant neoplasm of bone; C90.00 Multiple myeloma not having achieved remission
CPT/HCPCS: 36591; 38222; 80053; 85025; 96413; 99000; J1642; J2704; J9047

== ENCOUNTER → 2023-06-12 11:13 | Outpatient (CLI) | payer OTHER, SELFPAY ==
--- NOTE | 2023-06-12 11:14 | DI.RAD.S_ITS ---
PROCEDURE: XR HAND RT MIN 3V INDICATIONS: pain Rt 4tch MCP joint. TECHNIQUE: 3 views of the hand(s) acquired. COMPARISON: None. FINDINGS: Bones: No fractures or dislocations. There is a small osteochondroma in the proximal metaphysis of 5th metacarpal. Carpal bones are normally aligned. Mild osteoarthritic changes in wrist and hand. Soft tissues: No suspicious soft tissue calcifications. IMPRESSION: 1. Mild osteoarthritis. 2. A small osteochondroma in the proximal metaphysis of the 5th metacarpal. If there is focal pain and tenderness, consider MRI with and without contrast for further evaluation. Dictated by: Mercedes Butt M.D. on 06/12/2023 at 14:27 Approved by: Mercedes Butt M.D. on 06/12/2023 at 14:29
== END ==
PROVIDERS: PCP Family Medicine; Referring Provider Family Medicine; Visit Provider Family Medicine
DX: M19.041 Primary osteoarthritis, right hand (principal); D16.11 Benign neoplasm of short bones of right upper limb; M79.646 Pain in unspecified finger(s)
CPT/HCPCS: 73130

== ENCOUNTER → 2023-06-20 08:42 | Outpatient (CLI) | payer OTHER, SELFPAY ==
--- NOTE | 2023-06-20 08:43 | DI.MRI.S_ITS ---
PROCEDURE: MR HAND RT WO CON INDICATIONS: eval of osteochondroma, hx of Mult Myeloma TECHNIQUE: Noncontrast coronal T1 spin echo and T2 fast spin echo with fat saturation, axial proton density fast spin echo and T2 fast spin echo with fat saturation, sagittal T1 spin echo and STIR through the hand and fingers. COMPARISON: [facility], CR, XR HAND RT MIN 3V, 06/12/2023, 11:21. FINDINGS: Image quality: Excellent. Bones: No acute trabecular bone injury or fracture. Small osseous protuberance is seen at the radial aspect of the 5th metacarpal base that may be the sequela of a remote prior injury versus a small osteochondroma. The lesion is continuous with the medullary cavity. No significant cartilage cap is seen. No suspicious marrow replacing mass. Mild degenerative changes are seen at the 1st carpometacarpal joint and 1st metacarpophalangeal joint. Soft tissues: Mild tenosynovitis of the extensor carpi ulnaris tendon with mild overlying subcutaneous edema. There is tenosynovitis of the 4th flexor tendons throughout the finger. Focal tenosynovitis of the 4th extensor tendon at the level of the metacarpophalangeal joint. The visualized flexor and extensor tendons otherwise appear to be intact. Visualized muscles demonstrate normal bulk and internal signal. No intramuscular masses identified. No ganglion cysts. IMPRESSION: 1. Small nonedematous osseous protuberance at the radial aspect of the 5th metacarpal base may represent a small osteochondroma or the sequela of remote prior trauma. No cartilage cap is seen. No significant impingement is identified. 2. Tenosynovitis of the 4th flexor tendons throughout the ring finger. Mild focal tenosynovitis of the 4th extensor tendon at the level of the metacarpophalangeal joint. 3. Mild tenosynovitis of the extensor carpi ulnaris tendon at the level of the ulnar groove. Approved by: Sergo Bates M.D. on 06/20/2023 at 16:30
== END ==
PROVIDERS: PCP Family Medicine; Referring Provider Family Medicine; Visit Provider Family Medicine
DX: C90.00 Multiple myeloma not having achieved remission (principal); D16.9 Benign neoplasm of bone and articular cartilage, unspecified; M65.841 Other synovitis and tenosynovitis, right hand
CPT/HCPCS: 73218

== ENCOUNTER → 2023-07-12 09:26 | Outpatient (CLI) | payer OTHER, SELFPAY ==
[2023-07-12 10:28] LABS: Hemoglobin A1C% w Est Avg Glu 4.6 % (4.0-6.0)
[2023-07-12 11:11] LABS: TSH w/ Reflex to FT4 1.07 uIU/mL (0.47-4.68)
== END ==
PROVIDERS: PCP Family Medicine; Referring Provider Family Medicine; Visit Provider Family Medicine
DX: R73.01 Impaired fasting glucose (principal); E03.9 Hypothyroidism, unspecified
CPT/HCPCS: 36415; 83036; 84443

== ENCOUNTER → 2023-11-07 11:20 | Outpatient (CLI) | payer OTHER, SELFPAY ==
[2023-11-07 13:07] LABS: Prostate Specific Antigen < 0.064 ng/mL (0.10-4.00)
== END ==
PROVIDERS: PCP Family Medicine; Referring Provider Urology; Visit Provider Urology
DX: C61 Malignant neoplasm of prostate (principal)
CPT/HCPCS: 36415; 84153

== ENCOUNTER → 2023-11-14 15:20 | Outpatient (CLI) | payer OTHER, SELFPAY ==
[2023-11-14 19:30] LABS: Influenza A - CEPHEID Flu A NEGATIVE (NEGATIVE); Influenza B - CEPHEID Flu B NEGATIVE (NEGATIVE); Respiratory Syncytial Virus Negative (Negative)
[2023-11-14 19:52] LABS: COVID-19 CEPHEID 4-PLEX PCR Negative (Negative)
== END ==
PROVIDERS: PCP Family Medicine; Visit Provider Nurse Practitioner Family
DX: R05.9 Cough, unspecified (principal); R53.83 Other fatigue
CPT/HCPCS: 0241U; 81002

== ENCOUNTER → 2024-01-07 09:56 | Outpatient (CLI) | payer OTHER, SELFPAY ==
--- NOTE | 2024-01-07 10:01 | DI.RAD.S_ITS ---
PROCEDURE: XR PELVIS 1-2V INDICATIONS: back pelvic pain TECHNIQUE: 1 view(s) of the pelvis acquired. COMPARISON: None. FINDINGS: Bones: No fractures or dislocations. No suspicious bony lesions. Moderate bilateral hip joint space narrowing greater on the right. Mild degenerative changes noted lower lumbar spine. Pelvic ring intact. Soft tissues: Visualized bowel gas pattern is normal. No suspicious soft tissue calcifications. IMPRESSION: Moderate bilateral hip osteoarthritis Approved by: Natan Church M.D. on 01/07/2024 at 18:21
--- NOTE | 2024-01-07 10:01 | DI.RAD.S_ITS ---
PROCEDURE: XR CERVICAL SPINE 2V OR 3V INDICATIONS: back pelvic pain TECHNIQUE: 3 view(s) of the cervical spine were acquired. COMPARISON: None. FINDINGS: Bones: No fractures or dislocations to the T1 level. The lateral masses of C1 appear intact on the odontoid view. No suspicious bony lesions. Lower cervical spine disc space narrowing and hypertrophic arthropathy Soft tissues: No prevertebral soft tissue swelling. IMPRESSION: Lower cervical spine degenerative disc disease and arthropathy Approved by: Natan Church M.D. on 01/07/2024 at 18:03
--- NOTE | 2024-01-07 10:01 | DI.RAD.S_ITS ---
PROCEDURE: XR THORACIC SPINE 2V INDICATIONS: back pelvic pain TECHNIQUE: 3 views of the thoracic spine were acquired. COMPARISON: None. FINDINGS: Bones: No fractures or dislocations. No suspicious bony lesions. 12 pairs of ribs are noted, and appear intact where visualized. Soft tissues: No paravertebral stripe thickening. Left-sided Port-A-Cath in place IMPRESSION: No acute bony abnormality. Approved by: Natan Church M.D. on 01/07/2024 at 17:57
--- NOTE | 2024-01-07 10:01 | DI.RAD.S_ITS ---
PROCEDURE: XR LUMBAR SPINE 2-3V INDICATIONS: back pelvic pain TECHNIQUE: 3 views of the lumbar spine were acquired. COMPARISON: None. FINDINGS: Bones: 5 [id number] vertebrae are present. There is normal bony alignment. No vertebral body compression fractures. No suspicious bony lesions. Mild lower lumbar spine disc space narrowing and hypertrophic facet joints Soft tissues: Overlying bowel gas pattern is normal. No suspicious soft tissue calcifications. IMPRESSION: Mild lower lumbar spine degenerative disc disease and arthropathy Approved by: Natan Church M.D. on 01/07/2024 at 18:17
== END ==
LOC: RAD 10:00
PROVIDERS: PCP Family Medicine; Referring Provider Family Medicine; Visit Provider Family Medicine
DX: C90.00 Multiple myeloma not having achieved remission (principal); M16.0 Bilateral primary osteoarthritis of hip; M51.36 Other intervertebral disc degeneration, lumbar region; M47.816 Spondylosis without myelopathy or radiculopathy, lumbar region; M47.812 Spondylosis without myelopathy or radiculopathy, cervical region; M50.30 Other cervical disc degeneration, unspecified cervical region; M54.9 Dorsalgia, unspecified; R10.2 Pelvic and perineal pain; Z95.828 Presence of other vascular implants and grafts
CPT/HCPCS: 72040; 72070; 72100; 72170

== ENCOUNTER → 2024-02-05 08:55 | Outpatient (CLI) | payer OTHER, SELFPAY ==
[2024-02-05 11:40] LABS: Prostate Specific Antigen < 0.064 ng/mL (0.10-4.00)
== END ==
PROVIDERS: PCP Family Medicine; Referring Provider Urology; Visit Provider Urology
DX: C61 Malignant neoplasm of prostate (principal)
CPT/HCPCS: 36415; 84153

== ENCOUNTER → 2024-02-14 08:13 | Outpatient (CLI) | payer OTHER, SELFPAY ==
[2024-02-14 09:26] LABS: Add Manual Diff / Slide Review NO; Basophils Absolute Auto 0 /uL (0-100); Basophils Percent Auto 1.1 % (0-2); Eosinophils Absolute Auto 100 /uL (0-450); Eosinophils Percent Auto 2.2 % (2-4); Hematocrit 39.3 % (41-53); Hemoglobin 13.1 g/dL (13.5-17.5); Lymphocytes Absolute Auto 1000 /uL (1100-4500); Lymphocytes Percent Auto 32.4 % (25-40); Mean Corpuscular HGB Conc 33.4 % (30-36); Mean Corpuscular Hemoglobin 31.6 PG (26-34); Mean Corpuscular Volume 94.5 fL (80-100); Monocytes Absolute Auto 500 /uL (0-900); Monocytes Percent Auto 15.7 % (3-14); Neutrophils Absolute Auto 1500 /uL (1500-7000); Neutrophils Percent Auto 48.6 % (50-75); Platelet Count 142 X10^3/uL (150-400); Red Blood Cell Count 4.16 X10^6/uL (4.5-5.9); Red Cell Distribution Width 14.8 % (11.6-14.8); White Blood Cell Count 3.1 X10^3/uL (4.5-11.0)
[2024-02-14 20:16] LABS: Alanine Aminotransferase 43 IU/L (<50); Albumin 4.2 g/dL (3.5-5.0); Albumin Globulin Ratio 1.9 (1.0-2.8); Alkaline Phosphatase 43 U/L (38-126); Aspartate Aminotransferase 37 IU/L (17-59); BUN Creatinine Ratio 23.2 (6-22); Bilirubin Total 0.4 mg/dL (0.2-1.3); Blood Urea Nitrogen 19 mg/dL (9-20); Calcium 8.4 mg/dL (8.4-10.2); Carbon Dioxide 27 mmol/L (22-32); Chloride 107 mmol/L (98-107); Cholesterol 130 mg/dL (140-199); Estimated Glomerular Filt Rate > 60 mL/min (>60); Globulin 2.2 g/dL (1.7-4.1); Glucose 90 mg/dL (80-110); HDL Cholesterol 54 mg/dL (40-60); HEMOLYSIS < 15 (0-50); LDL Cholesterol Calculated 59 mg/dL (<100); Potassium 4.2 mmol/L (3.4-5.1); Sodium 139 mmol/L (137-145); Total Protein 6.4 g/dL (6.3-8.2); Triglycerides 83 mg/dL (35-150)
[2024-02-15 14:01] LABS: TSH w/ Reflex to FT4 1.21 uIU/mL (0.47-4.68)
== END ==
PROVIDERS: PCP Family Medicine; Referring Provider Family Medicine; Visit Provider Family Medicine
DX: I10 Essential (primary) hypertension (principal); E03.9 Hypothyroidism, unspecified; E11.69 Type 2 diabetes mellitus with other specified complication; E78.5 Hyperlipidemia, unspecified; Z79.899 Other long term (current) drug therapy; E11.9 Type 2 diabetes mellitus without complications
CPT/HCPCS: 36415; 80053; 80061; 83036; 84443; 85025

== ENCOUNTER → 2024-05-22 07:55 | Outpatient (CLI) | payer OTHER, SELFPAY ==
--- NOTE | 2024-05-22 07:58 | DI.MRI.S_ITS ---
PROCEDURE: MR PELVIS WO CON INDICATIONS: LBP with Rt radic. pelvic pain.hx of Mult Myeloma. ? lesions TECHNIQUE: Coronal HASTE, sagittal breath-hold T2 FSE; axial T1 FSE with and without fat saturation through the pelvis. Optional long- and short-axis uterine nonbreath-hold T2 FSE through the uterus. Sagittal or axial dynamic VIBE during administration of contrast. Post-contrast axial or coronal VIBE/2-D FLASH with fat saturation from the iliac crests to the symphysis. Optional diffusion weighted imaging and ADC may be performed. COMPARISON: None. FINDINGS: Image quality: Excellent. Urinary system: Bladder wall is normal in thickness. Distal ureters are non distended. Urethra appears normal in morphology. Nodes and vessels: No pelvic or inguinal adenopathy by size criteria. Iliac vessels are normal in size. Bowel and peritoneum: No pathologic free pelvic fluid. Inferior colon and small bowel loops are normal in caliber. Soft tissues: No inguinal hernias. No findings of pelvic floor incompetence in the absence of provocation. Bones: Marrow demonstrates normal overall signal. Modic type 1 changes across the L4-5 endplate. Moderate disc height loss at L5-S1, with broad-based disc bulge. Mild disc height loss at L3-4 and L4-5. IMPRESSION: No multiple myeloma lesions. Opposing Modic 1 changes at L4-5. Mild to moderate, multilevel degenerative disc disease. Dictated by: Pedro Luis Meade M.D. on 05/22/2024 at 13:03 Approved by: Pedro Luis Meade M.D. on 05/22/2024 at 13:04
--- NOTE | 2024-05-22 07:58 | DI.MRI.S_ITS ---
PROCEDURE: MR LUMBAR SPINE WO CON INDICATIONS: LBP with Rt radic. hx of Mult Myeloma. TECHNIQUE: Noncontrast sagittal T1 spin echo and T2 fast echo, sagittal STIR, and T2 fast spin echo through the lumbar spine. In cases with scoliosis, additional coronal T2 fast spin echo may be performed. COMPARISON: [facility], MR, MR LUMBAR SPINE WO CON, 07/28/2022, 15:44. [facility], MR, MR LUMBAR SPINE W CON, 08/04/2022, 11:45. FINDINGS: Image quality: Excellent. Alignment and Curvature: There is normal bony alignment. Bone Marrow: Marrow is of normal overall signal. Reactive endplate changes are present. There is increased signal within the superior endplate and midportion of the L5 vertebral body which is become progressive over multiple prior exams and likely related to myeloma disease. No acute vertebral body compression fractures. Spinal Cord: Conus medullaris terminates at the T12-L1 level. Visualized cord demonstrates normal signal and size. Paraspinous Soft Tissues: No paravertebral masses. T12-L1: No disc bulge, spinal stenosis or foraminal narrowing. Change L1-L2: No disc bulge, spinal stenosis or foraminal narrowing. Change L2-L3: Minimal disc bulge without spinal stenosis or foraminal narrowing. No interval change. L3-L4: Minimal disc bulge without spinal stenosis. [id number] bilateral foraminal narrowing with facet and ligamentum flavum hypertrophy. Epidural lipomatosis. No interval change. L4-L5: Mild disc bulge with small superimposed disc protrusion within the right lateral recess, new. Moderate bilateral right greater foraminal with facet and ligamentum flavum hypertrophy. L5-S1: Mild disc bulge without spinal stenosis. Mild left and moderate right foraminal with facet ligamentum flavum hypertrophy. No interval change IMPRESSION: Multilevel degenerative changes overall stable. Progressive appearance of the presume [place] majus lesion at L5. No visualized superimposed pathologic fracture. Dictated by: Deanna Cornell M.D. on 05/22/2024 at 19:51 Approved by: Deanna Cornell M.D. on 05/22/2024 at 19:57
[2024-05-22 09:30] LABS: Prostate Specific Antigen 0.115 ng/mL (0.10-4.00)
== END ==
PROVIDERS: Urology; PCP Family Medicine; Referring Provider Family Medicine; Visit Provider Family Medicine
DX: C90.00 Multiple myeloma not having achieved remission (principal); R10.2 Pelvic and perineal pain; M54.50 Low back pain, unspecified; C61 Malignant neoplasm of prostate; M51.36 Other intervertebral disc degeneration, lumbar region; M51.37 Other intervertebral disc degeneration, lumbosacral region
CPT/HCPCS: 36415; 72148; 72195; 84153

== ENCOUNTER → 2024-06-25 11:41 | Outpatient (CLI) | payer OTHER, SELFPAY ==
[2024-06-25 14:09] LABS: TSH w/ Reflex to FT4 1.05 uIU/mL (0.47-4.68)
== END ==
PROVIDERS: PCP Family Medicine; Referring Provider Family Medicine; Visit Provider Family Medicine
DX: E03.9 Hypothyroidism, unspecified (principal); Z79.899 Other long term (current) drug therapy
CPT/HCPCS: 36415; 84443

== ENCOUNTER → 2024-08-26 09:18 | Outpatient (CLI) | payer OTHER, SELFPAY ==
[2024-08-26 11:24] LABS: Hemoglobin A1C% w Est Avg Glu 5.6 % (4.0-6.0)
[2024-08-26 11:26] LABS: Prostate Specific Antigen 0.075 ng/mL (0.10-4.00)
[2024-08-26 11:29] LABS: Testosterone 262 ng/dL (71.8-623)
== END ==
PROVIDERS: PCP Family Medicine; Referring Provider Urology; Visit Provider Family Medicine
DX: C61 Malignant neoplasm of prostate (principal); E11.69 Type 2 diabetes mellitus with other specified complication; E78.5 Hyperlipidemia, unspecified; R53.82 Chronic fatigue, unspecified
CPT/HCPCS: 36415; 83036; 84153; 84403

== ENCOUNTER → 2024-09-16 14:12 | Outpatient (CLI) | payer OTHER, SELFPAY | PROVIDERS: PCP Family Medicine; Visit Provider Urology | DX: R39.14 Feeling of incomplete bladder emptying (principal); R31.21 Asymptomatic microscopic hematuria | CPT/HCPCS: 87086 ==

== ENCOUNTER → 2024-12-04 11:19 | Outpatient (CLI) | payer MEDICARE, OTHER, SELFPAY ==
[2024-12-04 12:42] LABS: Prostate Specific Antigen 0.102 ng/mL (0.10-4.00)
== END ==
LOC: LAB 11:22
PROVIDERS: PCP Family Medicine; Referring Provider Urology; Visit Provider Urology
DX: R39.9 Unspecified symptoms and signs involving the genitourinary system (principal)
CPT/HCPCS: 36415; 84153

== ENCOUNTER → 2025-04-15 12:12 | Outpatient (CLI) | payer MEDICARE, OTHER, SELFPAY ==
[2025-04-15 13:51] LABS: Prostate Specific Antigen 0.075 ng/mL (0.10-4.00)
== END ==
PROVIDERS: PCP Family Medicine; Referring Provider Urology; Visit Provider Urology
DX: C61 Malignant neoplasm of prostate (principal)
CPT/HCPCS: 84153